=== PATIENT | male | born 1995 | race Caucasian/White ===

== ENCOUNTER 2021-10-13 17:56 | Emergency (ER) | payer OTHER ==
[~2021-10-13] VITALS: Ht 185.4 cm; Wt 79.4 kg
== END 2021-10-13 18:15 | disposition home or self-care (01) ==
LOC: ER 17:58
DX: S44.01XA Injury of ulnar nerve at upper arm level, right arm, initial encounter (principal); X50.1XXA Overexertion from prolonged static or awkward postures, initial encounter; Z89.512 Acquired absence of left leg below knee
CPT/HCPCS: 99282